=== PATIENT | male | born 1950 | race Caucasian/White ===

== ENCOUNTER 2021-12-14 08:22 | Outpatient (CLI) | payer MEDICARE, BC, SELFPAY ==
[2021-12-14 13:17] LABS: Chloride* 103 mmol/L (96-114)
[2021-12-14 13:18] LABS: Potassium* 4.7 mmol/L (3.6-5.1); Sodium* 137 mmol/L (135-149)
[2021-12-14 13:20] LABS: Carbon Dioxide* 28 mmol/L (20-32); Cholesterol* 138 mg/dL (90-199); Estimated Glomerular Filt Rate 81.47
[2021-12-14 13:21] LABS: Blood Urea Nitrogen* 18 mg/dL (7-30); Calcium* 9.7 mg/dL (8.4-10.6); Glucose* 225 mg/dL (60-115); HDL Cholesterol* 45 mg/dL (>=40); LDL Cholesterol Calculated 65 mg/dL (<100); Triglycerides* 139 mg/dL (40-149)
== END 2021-12-14 08:23 | disposition home or self-care (01) ==
PROVIDERS: PCP Family Medicine; Visit Provider Family Medicine
DX: E78.5 Hyperlipidemia, unspecified (principal); N40.0 Benign prostatic hyperplasia without lower urinary tract symptoms; M17.12 Unilateral primary osteoarthritis, left knee; E13.9 Other specified diabetes mellitus without complications; R10.9 Unspecified abdominal pain; H26.9 Unspecified cataract; Z13.0 Encounter for screening for diseases of the blood and blood-forming organs and certain disorders involving the immune mechanism
CPT/HCPCS: 80048; 80061

== ENCOUNTER 2022-02-05 16:03 | Outpatient (CLI) | payer SELFPAY ==
--- NOTE | 2022-02-05 18:00 | CRLHL7_ITS ---
For Patients: As a result of the Century Cures Act, medical imaging exams and procedure reports are released immediately into your electronic medical record. You may view this report before your referring provider. If you have questions, please contact your health care provider. INDICATION: left calf pain/swellingfindings discussed with Kerry TECHNIQUE: Ultrasound venous duplex left lower extremity. COMPARISON: None. FINDINGS: The left common femoral, superficial femoral, deep femoral, popliteal, posterior tibial, and greater saphenous veins are fully compressible normal waveforms. The contralateral right common femoral vein is also compressible with normal waveform. No masses evident. IMPRESSION: Normal ultrasound of the left lower extremity veins. Dictated by: Maicol Denney MD @ 02/05/2022 18:45:16 (Electronically Signed)
== END 2022-02-05 16:04 | disposition home or self-care (01) ==
PROVIDERS: PCP Family Medicine; Visit Provider Physician Assistant Surgical
DX: M79.669 Pain in unspecified lower leg (principal); I82.409 Acute embolism and thrombosis of unspecified deep veins of unspecified lower extremity
CPT/HCPCS: 93971

== ENCOUNTER 2022-05-29 10:00 | Outpatient (RCR) | payer MEDICARE, BC, SELFPAY ==
--- NOTE | 2022-05-09 15:34 | PT.OPEX ---
PT [facility] [facility] Eval PT [facility] Out[facility] Eval Start: 05/09/22 15:28 Freq: Status: Active Protocol: Document 05/09/22 15:28 WANG (Rec: 05/09/22 15:30 WANG [id number]) E-signed By Shemar Dixon DPT, MS Physical Therapy Outpatient Evaluation Insurance Information Recert Due Date 08/07/22 Insurance Name Medicare B Medical Diagnosis Atrophy of quadriceps femoris muscle Treating Diagnosis Impaired B LE strength and endurance, deconditioning, balance, gait dysfunction Subjective Subjective Pt is a 72 y.o. male who presents to PT with c/o of acute onset of B (L>R) quad pain and knee instability of insidious origin in late March 2022. Cannot think of a specific activity or cause but did perform increased yardwork around that time. Sxs have since mostly resolved but he continues to experience unsteadiness of gait, and B LE weakness with gradual onset over the past 2-2.5 years following L TKA 2.5 years ago. Leads a sedentary lifestyle but is motivated to lose weight since he is 245 lbs. Has a treadmill at home and is wondering if walking would be good exercise for him? Has used a SPC since he experienced elevated B quad pain to decrease falls risk. PMH includes DM-II. AGGR: extended standing and walking, uneven surfaces. ALLEV factors: rest. PMH includes high cholesterol. Pt hopes to learn exercises to increase strength. Pain Comments 0-5/10 Current Work Status Retired Preferred Name Etienne Precautions Therapy Limitations/Systems Review Not Limited Objective Functional Test Performed & Score 5x sit to stand: 16 sec with use of hands TU.8 sec with SPC Assessment Assessment/Impression Objectively pt displays impairments in generalized LE strength and deconditioning as well as balance deficits. He appears to have overdone yardwork activities is late March, which led to elevated B quad pain and DOMs. He is a falls risk based on SLS and TUG testing. Discussed importance of increased activity levels walking on his treadmill and performing his HEP that was prescribed today. Skilled PT is indicated to return pt safely to PLOF and achieve PT goals. Primary Functional Limitations Extended standing and walking, uneven surfaces. Plan of Care Rehabilitation Potential Good Physical Therapy Goals Long-term goals to be completed in 10 weeks: 1. Pt will be independent with HEP 2. Pt will display improved B hip flex, ABD and ext strength > 4/5 to improve quality of gait 3. Pt will be able to walk for >5 minutes with a SPC to improve cardiovascular health 4. Pt will improve TUG score to <12 seconds without an AD demonstrate improved stability and safety with gait. 5. Pt will improve 5x sit to stand to <14 seconds to demonstrate improved LE functional strength. Coordination/Communication With Referral Source Treatment Plan/Direct Interventions Neuromuscular Re-ed, Therapeutic Exercises Frequency/Duration 1x/week for up to 6-10 visits, decreasing frequency as able. Patient Will Be Discharged From Therapy Completion of LTG(s),Skills Plateau,Independent w/HEP, Independently Progressing Evaluation Billing Untimed Code Treatment Minutes 25 Complexity Moderate Certification Information Initial Certification Date 05/09/22 Ending Certification Date 08/07/22 Provider Signature Shows Agreement With POC & Medical Necessity Physician Signature & Date Requested Please Sign/Date Here Physician Comment/Change : Physician NPI Number #
== END 2022-12-26 23:59 | disposition home or self-care (01) ==
PROVIDERS: PCP Family Medicine; Visit Provider Physician Assistant Surgical
DX: M62.559 Muscle wasting and atrophy, not elsewhere classified, unspecified thigh (principal); Z51.89 Encounter for other specified aftercare
CPT/HCPCS: 97110; 97162

== ENCOUNTER 2022-08-13 07:55 | Outpatient (CLI) | payer MEDICARE, BC, SELFPAY ==
--- NOTE | 2022-08-13 08:15 | CRLHL7_ITS ---
For Patients: As a result of the Century Cures Act, medical imaging exams and procedure reports are released immediately into your electronic medical record. You may view this report before your referring provider. If you have questions, please contact your health care provider. INDICATION: Radicular leg pain. COMPARISON: 04/10/2022. TECHNIQUE: Sagittal T1, T2, and STIR sequences. Axial T1 and T2 weighted sequences. FINDINGS: Normal vertebral body alignment. No fractures. No vertebral body loss of height. No ligamentous injury. No suspicious osseous lesions. Normal conus terminates at L1-2. Lumbar spondylosis with multilevel disc degeneration and facet arthropathy. Bilateral facet joint effusions of L3-4 and L4-5 which may indicate underlying joint instability. T12-L1 L1-2: No spinal canal neural foraminal narrowing. L2-3: Mild disc degeneration. Diffuse disc bulge eccentric to the left. Mild narrowing of spinal canal. Left subarticular recess narrowing with potential impingement of the traversing left L3 nerve root. Mild right and rjih-rs-saauqvyp left neural foraminal narrowing. Mild facet arthropathy. L3-4: Disc degeneration. Diffuse disc bulge. Posterior disc herniation measures approximately 4 millimeters in short axis. Combined with ligamentum flavum facet hypertrophy, there is moderate severe narrowing of spinal canal. Impingement of the traversing L4 nerve roots bilaterally. Moderate bilateral foraminal narrowing. Mild facet arthropathy. Prominent bilateral set joint effusions. L4-5: Disc degeneration. Diffuse disc bulge eccentric to the right. Superimposed right paracentral and foraminal disc herniation measures approximately 3 mm short axis. Tiny right paracentral annular fissure. Mild to moderate narrowing of spinal canal. Impingement of the traversing right L5 nerve root. Moderate right and mild left neural foraminal narrowing. Bilateral facet joint effusions. L5-S1: Disc degeneration and loss disc height. Diffuse disc bulges centric to the right. No narrowing of spinal canal. No impingement of the traversing S1 nerve roots. Moderate bilateral foraminal narrowing. Mild facet arthropathy. Normal visualized SI joints. Normal paraspinal soft tissues. IMPRESSION: 1. Normal alignment. No fractures. 2. Lumbar spondylosis. 3. At L2-3, left subarticular recess narrowing. Potential impingement of the traversing left L3 nerve root. Mild right and mbgr-ej-muqjigws left neural foraminal narrowing. 4. At L3-4, moderate to severe narrowing of spinal canal. Likely impingement of the traversing L4 nerve roots bilaterally. Moderate bilateral neural foraminal narrowing. 5. At L4-5, disc degeneration and diffuse disc bulge. Right paracentral and foraminal disc herniation. Tiny right paracentral annular fissure. Mild to moderate narrowing of spinal canal. Impingement of the traversing right L5 nerve root. Moderate right and mild left neural foraminal narrowing. 6. At L5-S1, moderate bilateral foraminal narrowing. Dictated by Luis Vaughn MD @ 08/13/2022 12:40:52 PM (Electronically Signed)
== END 2022-08-13 07:56 | disposition home or self-care (01) ==
LOC: MRI 07:58
PROVIDERS: PCP Family Medicine; Visit Provider Family Medicine
DX: M54.16 Radiculopathy, lumbar region (principal); M47.896 Other spondylosis, lumbar region; M51.26 Other intervertebral disc displacement, lumbar region; M51.27 Other intervertebral disc displacement, lumbosacral region
CPT/HCPCS: 72148

== ENCOUNTER 2023-01-06 08:10 | Outpatient (CLI) | payer MEDICARE, BC, SELFPAY | END 2023-01-06 08:11 | disposition home or self-care (01) | PROVIDERS: PCP Family Medicine; Visit Provider Family Medicine | DX: E13.9 Other specified diabetes mellitus without complications (principal); E78.5 Hyperlipidemia, unspecified | CPT/HCPCS: 80048; 80061 ==

== ENCOUNTER 2023-04-10 06:15 | Outpatient (CLI) | payer MEDICARE, BC, SELFPAY ==
--- NOTE | 2023-04-10 13:13 | W.ANESCHARGE ---
Anesthesia Charges Start Date/Time Anesthesia Start Date: 04/10/23 Anesthesia Start Time: 13:39 Stop Date/Time Anesthesia Stop Date: 04/10/23 Anesthesia Stop Time: 14:25 Summary Extremes of Age - Over 70 or under 1: MDA
--- NOTE | 2023-04-10 14:26 | W.ANESCHARGE ---
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
--- NOTE | 2023-04-10 14:41 | W.ANESCHARGE ---
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
== END 2023-04-10 06:16 | disposition home or self-care (01) ==
LOC: OP CLINIC 06:15
PROVIDERS: PCP Family Medicine; Visit Provider Surgery
DX: Z12.11 Encounter for screening for malignant neoplasm of colon (principal); K63.5 Polyp of colon
CPT/HCPCS: 00811; 45385; 88305; 99100; J2704

== ENCOUNTER 2023-06-06 09:19 | Emergency (ER) | payer MEDICARE, BC, SELFPAY ==
[2023-06-06 09:21] VITALS: BP 114/67; PULSE 77; RESP 18; TEMP 37; O2SAT 97; BMI 35.2
--- NOTE | 2023-06-06 10:31 | CRLHL7_ITS ---
For Patients: As a result of the Cures Act, medical imaging exams and procedure reports are released immediately into your electronic medical record. You may view this report before your referring provider. If you have questions, please contact your health care provider. Indication: Fell, knee pain Technique: Four views of the left knee. Comparison: Left knee radiograph on 08/17/2019 Findings/impression: No acute fracture or malalignment. No significant joint effusion. Postsurgical changes of left total knee arthroplasty without evidence of hardware related complication. Vascular calcifications. Dictated by Italo Monroy MD @ 06/06/2023 12:16:56 PM (Electronically Signed)
--- NOTE | 2023-06-06 10:41 | ED.LOWEXIN ---
HPI - Extremity Injury (Lower) General Date Seen: 06/06/23 Chief Complaint: Extremity Pain/Injury, Lower Stated Complaint: L knee pain, fell last night Time Seen by Provider: 06/06/23 10:18 Source: patient Mode of arrival: ambulatory Limitations: no limitations History of Present Illness HPI Narrative: Patient is a 73-year-old male presenting to the emergency department for left knee pain. Has history of diabetes and previous knee replacement 3 years ago at [place]. Patient states last night he was kneeling down when he suddenly lost his balance landing onto his left knee. Denies hitting his head any other injuries. He has been able to walk since then but has noticed increased swelling to his left knee. He does state it is painful walking is not moving this past is normal. Denies any other injuries. Denies any numbness. Related Data Home Medications Medication Instructions Recorded Confirmed aspirin 81 mg tablet,delayed mg PO DAILY 12/14/21 01/06/23 release lancets (Accu-Chek Fastclix Lancet 12/14/21 01/06/23 Drum) insulin glargine 100 unit/mL (3 34 unit subcut .Bedtime 06/06/23 06/06/23 mL) subcutaneous pen metformin 500 mg tablet 500 mg PO DAILY 06/06/23 06/06/23 Previous Rx's Medication Instructions Recorded blood sugar diagnostic #100 ea 04/10/22 lancets 32 gauge #100 ea 04/10/22 Blood Glucose Meter #1 ea 04/12/22 blood sugar diagnostic (Accu-Chek #100 ea 04/12/22 Hui Plus test strips) blood-glucose meter (Accu-Chek #1 ea 04/12/22 Hui Plus Meter) pen needle, diabetic 31 gauge x #100 ea 09/10/2210/22 (BD Ultra-Fine Short Pen Needle) atorvastatin 20 mg tablet 20 mg PO QAM #90 tabs 01/06/23 pioglitazone 30 mg tablet 30 mg PO DAILY #90 tabs 01/06/23 tamsulosin 0.4 mg capsule 0.4 mg PO DAILY #90 caps 01/06/23 peg 3350-electrolytes 236 240 ml PO Q10M #4,000 mL 03/24/23 gram-22.74 gram-6.74 gram-5.86 gram solution (Golytely) pen needle, diabetic 32 gauge x #100 ea 04/03/23 (BD Dianne 2nd Gen Pen Needle) dulaglutide 3 mg/0.5 mL 3 mg (0.5 mL) subcut QWEEK #2 mL 05/27/23 subcutaneous pen injector ([facility]) Allergies Allergy/AdvReac Type Severity Reaction Status Date / Time No Known Allergies Allergy Unknown Verified 06/06/23 09:29 Review of Systems Narrative: Pertinent systems reviewed and negative unless stated in HPI PFSH PFSH Medical History Spermatocele of epididymis ?N43.40 - Spermatocele of epididymis, unspecified (ICD-10) Surgical History Status post total left knee replacement ?Z96.652 - Presence of left artificial knee joint (ICD-10) History of vasectomy (05/17/11) ?Z98.52 - Vasectomy status (ICD-10) History of lumbar laminectomy (05/17/11) ?Z98.890 - Other specified postprocedural states (ICD-10) Social History Narrative: Hx Tobacco use What is your current living situation?: I presently have a place to live Problems where you live: no known problems In the past 12 months, utilities in danger of being shut off: no In past 12 months, lack of transportation kept you from medical appts, meetings, work, or getting things needed for daily living: no In the past 12 mos, have been you worried that your food would run out before you had money to buy more?: never true In the past 12 mos, the food you bought just didn't last and you didn't have money to buy more?: never true Smoking Status: Former smoker How often does anyone, including family, friends and others, physically hurt you: never How often does anyone, including family, friends and others, insult or talk down to you: never How often does anyone, including family, friends and others, threaten you with harm: never How often does anyone, including family, friends and others, scream or curse at you: never Little interest or pleasure in doing things: not at all Feeling down, depressed, or hopeless: not at all Exam Narrative: Exam Narrative: Const: Well-nourished, Well-developed, in mild distress Eyes: PERRL, no conjunctival injection, and symmetrical lids HENT: Atraumatic external nose and ears. Moist mucous membranes. MSK:Extremities w/o deformity, decreased range of motion to the left knee secondary to pain. Swelling noted to left knee. Skin: Warm, Dry. No rashes or lesions. Neuro: Normal Muscle tone, No focal neurological deficits. Psych: Awake, Alert, & Oriented x3. Appropriate mood and affect. Const: Vital Signs, click to edit/add: Vital Signs - 24 hr 06/06/23 09:21 Temperature 98.6 F Pulse Rate [Right Pulse Oximeter] 77 Respiratory Rate 18 Blood Pressure [Ri ght Upper Arm] 114/67 Pulse Oximetry 97 Oxygen Delivery Me thod Room Air Course Vital Signs Vital signs: Initial Vital Signs Temperature 98.6 F 06/06/23 09:21 Temperature Source Temporal Artery Scan 06/06/23 09:21 Pulse Rate 77 06/06/23 09:21 Respiratory Rate 18 06/06/23 09:21 Blood Pressure 114/67 06/06/23 09:21 Blood Pressure Mean 82 06/06/23 09:21 Blood Pressure Position Sitting 06/06/23 09:21 Pulse Oximetry 97 06/06/23 09:21 Oxygen Delivery Method Room Air 06/06/23 09:21 Vital Signs Temperature 98.6 F 06/06/23 09:21 Pulse Rate 77 06/06/23 09:21 Respiratory Rate 18 06/06/23 09:21 Blood Pressure 114/67 06/06/23 09:21 Pulse Oximetry 97 06/06/23 09:21 Oxygen Delivery Method Room Air 06/06/23 09:21 Temperature 98.6 F 06/06/23 09:21 Pulse Rate 77 06/06/23 09:21 Respiratory Rate 18 06/06/23 09:21 Blood Pressure 114/67 06/06/23 09:21 Pulse Oximetry 97 06/06/23 09:21 Oxygen Delivery Method Room Air 06/06/23 09:21 MDM - Extremity Injury (Lower) MDM Narrative Medical decision making narrative: Patient is a 73-year-old male presenting left knee pain. No other injuries noted. We will do x-ray of left knee. Is not Requesting pain meds at this time. X-ray returned showing no acute abnormalities. He is otherwise doing well. Further workup is not necessary he discharged home. They are agreeable with this plan. Minh wrap will be placed Imaging Data Knee x-ray: Radiologist's impression: No acute fracture or malalignment. No significant joint effusion. Postsurgical changes of left total knee arthroplasty without evidence of hardware related complication. Vascular calcifications. Dictated by Italo Monroy MD @ 06/06/2023 12:16:56 PM Discharge Plan Discharge Clinical Impression: Acute knee pain Qualifiers: Laterality: left Qualified Code(s): M25.562 - Pain in left knee Patient Disposition: Home, Self-Care Condition: Stable Instructions: Knee Pain (ED) Additional Instructions: Take Tylenol and ibuprofen for pain. Use the Minh wrap as needed for comfort. Return to emergency department for new or worsening symptoms Prescriptions: No Action aspirin 81 mg tablet,delayed release (DR/EC) PO DAILY (DME) lancets [Accu-Chek Fastclix Lancet Drum] [facility] See Rx Instructions .Route Rx Instructions: As directed atorvastatin 20 mg tablet 20 mg PO QAM Qty: 90 3RF pioglitazone 30 mg tablet 30 mg PO DAILY Qty: 90 3RF Rx Instructions: Re-check A1C in 3 mo. tamsulosin 0.4 mg capsule 0.4 mg PO DAILY Qty: 90 3RF (DME) blood sugar diagnostic Strip See Rx Instructions .Route Qty: 100 3RF Rx Instructions: TEST ONCE DAILY (DME) [facility]ructions .Route Qty: 100 3RF Rx Instructions: TEST ONCE DAILY metformin 500 mg tablet 500 mg PO DAILY insulin glargine 100 unit/mL (3 mL) insulin pen 34 unit subcut .Bedtime (DME) Blood Glucose Meter [facility] See Rx Instructions .Route Qty: 1 0RF Rx Instructions: test QAM - please fill with what glucose meter is covered best by insurance (DME) blood-glucose meter [Accu-Chek Hui Plus Meter] [facility] See Rx Instructions .Route Qty: 1 0RF Rx Instructions: Test once daily QAM. Call clinic with readings in 1 week. (DME) Accu-Chek Hui Plus test strp Strip See Rx Instructions .Route Qty: 100 11RF Rx Instructions: Test daily (DME) pen needle, diabetic [BD Ultra-Fine Short Pen Needle] 31 gauge x 5/16 needle See Rx Instructions .Route Qty: 100 0RF Rx Instructions: Use daily peg 3350-electrolytes [Golytely] 236-22.74-6.74 -5.86 gram recon soln 240 ml PO Q10M Qty: 4000 0RF Rx Instructions: until fecal effluent is clear (DME) pen needle, diabetic [BD Dianne 2nd Gen Pen Needle] 32 gauge x 5/32 needle See Rx Instructions .ROUTE .COMPLEX Qty: 100 0RF Dose Instruction: USE DAILY DIRECTED Rx Instructions: USE DAILY DIRECTED Trulicity 3 mg/0.5 mL pen injector 3 mg subcut QWEEK Qty: 2 3RF Follow Up/Referrals: Mihir Lepe MD [Primary Care Provider] - Stand Alone Forms: MyHealth Info Instructions
== END 2023-06-06 12:35 | disposition home or self-care (01) ==
PROVIDERS: Emergency Provider Student in an Organized Health Care Education/Training Program; PCP Family Medicine
DX: M25.562 Pain in left knee (principal); W19.XXXA Unspecified fall, initial encounter
CPT/HCPCS: 73564; 99282; 99283

== ENCOUNTER 2023-09-26 14:00 | Outpatient (RCR) | payer MEDICARE, BC, SELFPAY ==
--- NOTE | 2023-08-20 15:55 | PT.OPEX ---
PT [place] Outpatient Eval PT [facility] Out[facility] Eval Start: 08/20/23 13:06 Freq: Status: Active Protocol: Document 08/20/23 13:06 CRP (Rec: 08/20/23 15:54 CRP [id number]) E-signed By Shemar Murphy PT Physical Therapy Outpatient Evaluation Insurance Information Recert Due Date 11/18/23 Insurance Name Medicare B Medical Diagnosis Lumbar DDD Atrophy of quadriceps Referring MD Dr Lepe Subjective Subjective Pt reports that he is having issues with standing up straight, stability with walking and L knee pain. Had L TKA around 2019. Initially the rehab went well but then in the last couple of years the knee is not doing as well. Feels weak. He also has had an onset of shifting to the R when he walks. He does feel like he needs to use a cane. reports he is with the cane 95%+ of the time. he did have a fall when he lost his balance trying to bend forward to tie his shoe. Does have aching at times into his L knee and his notes that he does grumble about body pain but he is not aware of it. Pt is retired. Pain Comments Mild Current Work Status Retired Preferred Name Etienne Objective Other/Pertinent Objective Posture: Standing- R lateral shift. Correction does seem to increase his L knee pain. Gait: Uses single end cane on L side. Severe R lateral shift noted Trunk ROM: Flex WNL, Ext homero dec, R SB min dec, L SB homero dec - unable to come out of the shift, Rotation WNL bilat Hip ROM: WNL bilat Knee ROM: WNL without pain MMT: L hip flex 3+/5, L knee ext 4/5. All other testing 5/ 5 Segmental mobility: Dallison with knees to the L - closing L side L SL rotation mobs mild restriction Functional Test Performed & Score Tinetti Balance Score 20/28 Assessment Assessment/Impression Pt presents to the clinic with signs and sxs that suggest lumbar radiculopathy resulting in L LE dysfunction and a right lateral shift. Pts presentation is characterized by decreased trunk ROM, R lateral shift that worsens with gait, mild/mod balance impairment and neuropathic weakness into the L hip flexors/L quad. Skilled PT is necessary to incorporate ther ex, nm hermilo, manual therapy and pt education to decrease pain and improve functional mobility. Primary Functional Limitations Standing Sit to stand Gait Stairs Plan of Care Rehabilitation Potential Good Physical Therapy Goals 1. Pt will be independent with HEP in 8 weeks. 2. Pt will walk without AD and show good dynamic balance in 10 weeks. 3. Pt will stand with 75% decrease in lateral shift in 12 weeks. Treatment Plan/Direct Interventions Gait Training,Joint Mobilization,Manual Therapy, Neuromuscular Re-ed,Self-Care/ Home Management,Therapeutic Activities,Therapeutic Exercises Frequency/Duration 1x/wk to every other week for 12 weeks Patient Will Be Discharged From Therapy Completion of LTG(s),Skills Plateau,Independent w/HEP, Independently Progressing Evaluation Billing Untimed Code Treatment Minutes 30 Complexity Moderate Certification Information Initial Certification Date 08/20/23 Ending Certification Date 11/18/23 Provider Signature Shows Agreement With POC & Medical Necessity Physician Signature & Date Requested Please Sign/Date Here Physician Comment/Change : Physician NPI Number #
== END 2024-01-24 23:59 | disposition home or self-care (01) ==
PROVIDERS: PCP Family Medicine; Visit Provider Family Medicine
DX: M51.36 Other intervertebral disc degeneration, lumbar region (principal); M62.559 Muscle wasting and atrophy, not elsewhere classified, unspecified thigh; Z51.89 Encounter for other specified aftercare
CPT/HCPCS: 97110; 97112; 97140; 97162

== ENCOUNTER 2023-12-23 08:01 | Outpatient (CLI) | payer MEDICARE, BC, SELFPAY ==
--- OUTSIDE RECORDS SUMMARY | 2023-12-25 09:29 | XMS_ITS | Continuity of Care Document ---
Author Organization [facility] Address [address] [place] [address] Phone Care Team Providers Care Gold Layer Name Role Phone Jesus Garza MD Unavailable Unavailable Procedures Procedure Date Office/Outpatient Visit,[facility] 2022 Advance Directives Directive Yes / No Effective Date File Name No Information Encounters Encounter Description Practice Location Reason(s) For Visit Diagnoses Date Provider Providers Copied on Encounter Office/Outpat ient Visit,, [facility], [address], [place], [place], [id number], [place] tel:[phone] [facility] Other intervertebral disc displacement, lumbar region 3 Kayla Lee. [facility], [address] [place] [address], [place], [place], [id number] , [place]. tel:[phone] Referring Provider: Elijah Khan, [facility] [id number] [place] [address], [address]. tel:[phone] Family History Family Member Type Diagnosis Age At Onset No Information Payers Payer name Insurance type Covered republican ID Authoriza tion(s) Medicare MB [id number] [facility] [id number] [facility] [id number] Social History Type Description Quantity Date Captured Comments Sex Male Smoking Status No Information Vital Signs Date / Time: Height Weight BMI Pulse Rate Blood Pressure Temperature Respiratory Rate Body Surface Area Head Circumference Head Circ. Percentile Wt./Dain. Percentile BMI percentile Pulse Ox Inhaled Ox 1:05 PM 70.50 in 112.037 kg (247.00 lbs) 34.9 4 kg/m eter (2) Chief Complaint And Reason For Visit No Information Reason For Referral Reason For Referral No Information History Of Present Illness Encounter Date Complaint History Of Prese nt Illness No Information Functional Status Date Functional Assessmen t No Information Instructions Date Instruction Additional Infor mation No Information Assessments Type Assessment Date No Information Patient Care Teams Name Effective Dates (start - stop) Status Members No Information
--- OUTSIDE RECORDS SUMMARY | 2023-12-25 09:29 | XMS_ITS | Clinical Summary ---
Author Organization [facility] Address [place], [place] [address] Care Team Providers Care Classifications Officer Cc/Cm Name Role Phone Junior Salazar Primary Care Provider [phone] Allergies No known active allergies Medications Medication Sig Dispensed Refills Start Date End Date Status diazepam (VALIUM) 10 mg tablet Take 10 mg by mouth. HS PRN Active glipiZIDE (GLUCOTROL) 10 mg tablet Take 10 mg by mouth once daily before a meal. Active metFORMIN (GLUCOPHAGE) 500 mg tablet Take 500 mg by mouth 2 times daily with meals. Active ASCORBATE CALCIUM (VITAMIN C ORAL) Take by mouth once daily. Active simvastatin (ZOCOR) 10 mg tablet Take 10 mg by mouth at bedtime. Active HYDROcodone-acetam inophen, 5-500 mg, (VICODIN) Tab tablet Take 1-2 tablets by mouth every 6 hours if needed for Pain. Max acetaminophen dose: 4000mg in 24 hrs. 25 tablet 0 11/20/2011 Active Social History Tobacco Use Types Packs/Day Years Used Date Smoking Tobacco: Never Assessed Sex and Gender Information Value Date Recorded Sex Assigned at Not on file Gender Identity Not on file Sexual Orientation Not on file Obstetrics History Last Filed Vital Signs Vital Sign Reading Time Taken Comments Blood Pressure 112/74 11/20/2011 1:40 PM CDT Pulse 53 11/20/2011 1:40 PM CDT Temperature 36.4 ??C (97.5 ??F) 11/20/2011 12:20 PM C DT Respiratory Rate 16 11/20/2011 1:40 PM CDT Oxygen Saturation 97% 11/20/2011 1:40 PM CDT Inhaled Oxygen Concentration - - Weight 106.1 kg (234 lb) 11/20/2011 9:48 AM CDT Height 179.1 cm (5' 10.5) 11/20/2011 9:48 AM CD T Body Mass Index 33.1 11/20/2011 9:48 AM CDT Plan of Treatment Not on file Advance Directives * Full Code (Latest Code Status on File) Date Activated Date Inactivated Comments 11/20/2011 9:26 AM 11/20/2011 3:49 PM Care Teams Classifications Officer Cc/Cm Relationship Specialty Start Date End Date Junior Salazar [address] [place] [id number] PCP - General Family Practice 11/13/11
== END 2023-12-23 08:02 | disposition home or self-care (01) ==
LOC: NFLDREF 12-25 09:27
PROVIDERS: PCP Family Medicine; Referring Provider Family Medicine; Visit Provider Family Medicine
DX: R53.83 Other fatigue (principal); E78.5 Hyperlipidemia, unspecified; I10 Essential (primary) hypertension; R41.3 Other amnesia; E11.9 Type 2 diabetes mellitus without complications
CPT/HCPCS: 80053; 80061; 82043; 82570; 82607; 84443; G0103

== ENCOUNTER 2024-02-11 08:32 | Outpatient (CLI) | payer MEDICARE, BC, SELFPAY ==
--- OUTSIDE RECORDS SUMMARY | 2024-02-11 08:38 | XMS_ITS | Clinical Summary ---
Author Organization [facility] Address [place], [place] [address] Care Team Providers Care Patient Relations Specialist Name Role Phone Junior Salazar Primary Care Provider [phone] Allergies No known active allergies Medications Medication [...] 9:26 AM 11/20/2011 3:49 PM Care Teams Patient Relations Specialist Relationship Specialty Start Date End Date Junior Salazar [address] [place] [id number] PCP - General Family Practice 11/13/11
--- OUTSIDE RECORDS SUMMARY | 2024-02-11 08:38 | XMS_ITS | Continuity of Care Document ---
Author Organization [facility] Address [address] [place] [address] Phone Care Team Providers Care Casket Assembler Metal Name Role Phone Jesus Garza MD Unavailable Unavailable Procedures Procedure Date Office/Outpatient Visit,[facility] 2022 Advance Directives Directive Yes / No Effective Date File Name No Information Encounters Encounter Description Practice Location Reason(s) For Visit Diagnoses Date Provider Providers Copied on Encounter Office/Outpat ient Visit,, [facility], [address], [place], [place], [id number], [place] tel:[phone] [facility] [place] Other intervertebral disc displacement, lumbar region 3 Kayla Lee. [facility], [address] [place] [address], [place], [place], [id number] , [place]. tel:[phone] Referring Provider: Elijah Khan, [facility] [id number] [place] [address], [address]. tel:[phone] Family History Family Member Type Diagnosis Age At Onset No Information Payers Payer name Insurance type Covered alliance party ID Authoriza tion(s) Medicare MB [id number] [facility] [id number] [facility] [id number] Social History Type Description Quantity Date Captured [...]
--- NOTE | 2024-02-11 09:00 | CRLHL7_ITS ---
For Patients: As a result of the Century Cures Act, medical imaging exams and procedure reports are released immediately into your electronic medical record. You may view this report before your referring provider. If you have questions, please contact your health care provider. Indication: Abdominal aortic aneurysm screening Technique: Sonographic examination of the abdominal aorta and common iliac arteries was performed. Comparison: None. Findings: The abdominal aorta has a normal appearance. Measurements: Proximal measurement: 2.8 x 2.8 cm. Mid measurement: 2.4 x 2.1 cm. Distal measurement: 2.0 x 2.2 cm. Right common iliac artery measurement: 1.5 x 1.3 cm. Left common iliac artery measurement: 1.5 x 1.2 cm. Impression: No abdominal aortic aneurysm. Dictated by Gold Kaufman MD @ 02/11/2024 9:43:31 AM (Electronically Signed)
== END 2024-02-11 08:33 | disposition home or self-care (01) ==
LOC: US 08:35
PROVIDERS: PCP Family Medicine; Visit Provider Family Medicine
DX: Z13.6 Encounter for screening for cardiovascular disorders (principal)
CPT/HCPCS: 76775

== ENCOUNTER 2024-04-19 07:20 | Outpatient (CLI) | payer MEDICARE, BC, SELFPAY ==
--- OUTSIDE RECORDS SUMMARY | 2024-04-20 17:44 | XMS_ITS | Clinical Summary ---
Author Organization [facility] Address [place], [place] [address] Care Team Providers Care Livestock Commission Agent Name Role Phone Junior Salazar Primary Care Provider [phone] Allergies No known active allergies Medications Medication [...] 9:26 AM 11/20/2011 3:49 PM Care Teams Livestock Commission Agent Relationship Specialty Start Date End Date Junior Salazar [address] [place] [id number] PCP - General Family Practice 11/13/11
== END 2024-04-19 07:21 | disposition home or self-care (01) ==
LOC: NFLDREF 04-20 17:42
PROVIDERS: PCP Family Medicine; Referring Provider Family Medicine; Visit Provider Family Medicine
DX: E11.29 Type 2 diabetes mellitus with other diabetic kidney complication (principal); E11.42 Type 2 diabetes mellitus with diabetic polyneuropathy; R80.9 Proteinuria, unspecified; Z79.4 Long term (current) use of insulin
CPT/HCPCS: 80053; 82043; 82570

== ENCOUNTER 2025-01-13 09:14 | Outpatient (CLI) | payer MEDICARE, BC, SELFPAY | END 2025-01-13 09:15 | disposition home or self-care (01) | LOC: NFLDREF 01-18 15:06 | PROVIDERS: PCP Family Medicine; Referring Provider Family Medicine; Visit Provider Family Medicine | DX: E11.29 Type 2 diabetes mellitus with other diabetic kidney complication (principal); E11.42 Type 2 diabetes mellitus with diabetic polyneuropathy; R80.9 Proteinuria, unspecified; E78.2 Mixed hyperlipidemia; N40.0 Benign prostatic hyperplasia without lower urinary tract symptoms; E66.9 Obesity, unspecified; Z79.4 Long term (current) use of insulin; Z12.5 Encounter for screening for malignant neoplasm of prostate | CPT/HCPCS: 80053; 80061; 82043; 82570; 84443; G0103 ==